=== PATIENT | female | born 1985 | race Caucasian/White ===

== ENCOUNTER 2019-08-15 19:07 | Emergency (ER) | payer OTHER, SELFPAY ==
--- NOTE | 2019-08-15 19:15 | ED.SKABFB ---
HPI - Skin/Abscess/Foreign Bdy General Chief complaint: Skin/Abscess/Foreign Body Stated complaint: rash Time Seen by Provider: 08/15/19 19:15 Source: patient and RN notes reviewed History of Present Illness HPI narrative: Patient is a 33-year-old female who presents the urgent care with complaints of a rash. Patient states that started 3 days while being outside and then worsened today while out in the heat all day fishing. Patient denies any use of [id number] medication or creams for the area. Denies any new detergents, creams, fragrance. No other acute complaints. No acute distress noted. Patient aware of the plan of care. Related Data Allergies Allergy/AdvReac Type Severity Reaction Status Date / Time Penicillins AdvReac Unknown CAUSES Verified 03/25/19 21:50 YEAST INFECTIONS Review of Systems Review of Systems: Narrative: CONSTITUTIONAL: Denies fever, chills, or sweats. EYES: Denies visual changes, redness, or discharge. ENT: Denies rhinorrhea, congestion, sore throat, or otalgia. CARDIOVASCULAR: Denies chest pain, palpitations, or edema. RESPIRATORY: Denies cough or dyspnea. GASTROINTESTINAL: Denies abdominal pain, nausea, vomiting, or diarrhea. GENITOURINARY: Denies dysuria or hematuria. SKIN: Reports of an itchy burning rash to bilateral upper arms and chest MUSCULOSKELETAL: Denies back pain, joint pain, or myalgia. NEUROLOGIC: Denies headache, numbness, or weakness. All other systems reviewed are negative, except as documented in HPI. PMFSH Social History Social History (Updated 03/25/19 @ 22:53 by Slim Morris PA-C) Smoking status: Current every day smoker Comments At the time of my signature, I reviewed and agree with the nursing past medical, surgical, social, and family history. There is no relevant family history pertinent to the patient complaint. Exam Narrative: Exam Narrative: GENERAL: This is a well-nourished, well-developed patient, in no apparent distress. HEAD: normocephalic, atraumatic. EYES: PERRL. Sclera clear/white. Vision is grossly intact. EARS: External ears normal NOSE: External nose normal with no obvious nasal discharge, nares without redness, no rhinorrhea. THROAT: Mucous membranes moist NECK: Neck supple SKIN: First-degree sunburn with 2 notable pinpoint blisters to the right chest and mild welting rash to bilateral upper arms, shoulders, chest NEURO: awake, alert, and oriented to person, place and time. There were no obvious focal neurologic abnormalities. EXTREMITIES: No clubbing, cyanosis, or edema. Course Vital Signs Vital signs: Vital Signs Temperature 98.4 F 08/15/19 19:19 Pulse Rate 102 H 08/15/19 19:19 Respiratory Rate 16 08/15/19 19:19 Blood Pressure 117/83 08/15/19 19:19 Pulse Oximetry 99 08/15/19 19:19 Temperature 98.4 F 08/15/19 19:19 Pulse Rate 102 H 08/15/19 19:19 Respiratory Rate 16 08/15/19 19:19 Blood Pressure 117/83 08/15/19 19:19 Pulse Oximetry 99 08/15/19 19:19 Reviewed MDM - Skin/Abscess/Foreign Bdy MDM Narrative Medical decision making narrative: Advised the patient to use a thin application of Silvadene for approximately 5 days as needed. A little bit goes a long way. Apply to affected areas of shoulder, upper arm, chest. Avoid being out in the sun until the areas are healed. If you are out in the sun?wear a sun guard or longsleeve shirt/T-shirt. May use aloe or cocoa butter as needed for soothing. May use a cool cloth as needed for soothing. If the areas start to blister, do not pop them. If you develop any lethargy, weakness, fever?go to the emergency room. Increase water intake. Follow-up with your PCP within 2 to 5 days or for worsening symptoms or failure to improve. Differential Diagnosis Differential diagnosis: Likely abscess of skin or subcutaneous tissue, urticaria, cellulitis, insect bites and impetigo Critical Care Time Critical Care Time Critical Care Time: No Discharge Plan Disc
[2019-08-15 19:19] VITALS: BP 117/83; PULSE 102; RESP 16; TEMP 36.9; O2SAT 99
== END 2019-08-15 19:42 | disposition home or self-care (01) ==
PROVIDERS: Emergency Provider Nurse Practitioner Family
DX: L55.9 Sunburn, unspecified (principal); F17.290 Nicotine dependence, other tobacco product, uncomplicated
CPT/HCPCS: 99213; G0463

== ENCOUNTER 2020-01-25 20:58 | Emergency (ER) | payer OTHER, SELFPAY ==
[2020-01-25] VITALS (19 sets, daily range): BP systolic 103–115; BP diastolic 66–76; PULSE 67–88; RESP 12–22; TEMP 36.7; O2SAT 96–100
--- NOTE | ~2020-01-25 | XR_ITS ---
EXAMINATION: XR chest 1V portable DATE: 01/25/2020 21:31 INDICATION: Cough, chills and congestion TECHNIQUE: frontal view of the chest was obtained. COMPARISON: Chest radiograph dated 12/06/2018 FINDINGS: There is some bronchial wall thickening which is most evident at the right infrahilar region consiste nt with given history of bronchitis. No airspace opacities, pleural effusion or pneumothorax. The car diomediastinal silhouette is normal. Mild thoracic dextrocurvature. IMPRESSION: 1. Mild bronchial wall thickening without evident airspace opacities consistent with given history of bronchitis. Reviewed, dictated and finalized at location H. [employer]
--- NOTE | 2020-01-25 21:04 | ED.GENADULT ---
HPI - General Adult General Chief complaint: Upper Respiratory Infection Stated complaint: not feeling well Time Seen by Provider: 01/25/20 21:03 Source: patient Mode of arrival: ambulatory Limitations: no limitations History of Present Illness HPI narrative: Patient is a 34-year-old female who presents for evaluation of cough, malaise, generally feeling unwell. Patient reports intermittent diarrhea but denies vomiting. She denies abdominal pain or chest pain. No current shortness of breath. She denies fever, states she has had intermittent chills. She denies recent sick contacts. She reports rhinorrhea and sore throat. She reports feeling like she has some swollen lymph nodes on the left side of her throat and she reports left-sided ear pain. She denies any discharge from the ears. She denies any difficulty with walking or severe headache pain. Denies vision changes. Related Data Allergies Allergy/AdvReac Type Severity Reaction Status Date / Time Penicillins AdvReac Unknown CAUSES Verified 01/25/20 21:20 YEAST INFECTIONS Review of Systems Review of Systems: Narrative: CONSTITUTIONAL: Denies fever, reports chills and EYES: Denies visual changes, redness, or discharge. ENT: Reports rhinorrhea, congestion, sore throat, otalgia CARDIOVASCULAR: Denies chest pain, palpitations, or edema. RESPIRATORY: Reports dry cough without shortness of breath GASTROINTESTINAL: Denies abdominal pain, denies nausea, reports intermittent diarrhea GENITOURINARY: Denies dysuria or hematuria. SKIN: Denies rash or itching. MUSCULOSKELETAL: Denies back pain, joint pain, or myalgia. NEUROLOGIC: Denies headache, numbness, or weakness. [facility] Past Medical History Medical History No pertinent past medical history Surgical History Surgical History (Updated 01/25/20 @ 21:22 by Jill Martino MD) H/O tubal ligation Social History Social History Smoking status: Current every day smoker Exam Narrative: Exam Narrative: GENERAL: Awake, alert, conversant HEAD: Normocephalic, atraumatic. EYES: PERRLA and EOMI. ENT: Nares clear, no rhinorrhea or epistaxis. Mucous membranes moist. TMs are clear bilaterally without erythema, exudate. No perforation. Uvula midline. No erythema. No petechiae of the tonsils. NECK: Supple. Left anterior cervical lymphadenopathy, rubbery, mobile, mildly tender. No erythematous. CHEST: No respiratory distress, breathing even and non labored, clear to auscultation bilaterally HEART: Regular rate, sinus rhythm ABDOMEN:Non distended, non tender EXTREMITIES: Normal range of motion. No edema. SKIN: Warm, dry, no rash. NEURO:No focal deficits. Alert and oriented x3 Course Vital Signs Vital signs: Vital Signs Temperature 36.7 C 01/25/20 21:05 Pulse Rate 70 01/25/20 21:05 Respiratory Rate 13 01/25/20 21:05 Blood Pressure 115/76 01/25/20 21:05 Pulse Oximetry 100 01/25/20 21:05 Temperature 36.7 C 01/25/20 21:13 Pulse Rate 71 01/25/20 22:08 Respiratory Rate 12 01/25/20 22:08 Blood Pressure 104/68 01/25/20 22:08 Pulse Oximetry 99 01/25/20 22:08 Medical Decision Making MDM Narrative Medical decision making narrative: Patient presented for evaluation of cough, malaise, earache, sore throat. At time of assessment, ABCs are intact and vital signs are stable. Patient is afebrile. No increased work of breathing. Patient is denying any chest pain or shortness of breath. Lungs are clear on exam. Oropharynx is unremarkable, there is no evidence of otitis media or serous effusions on the patient's examination of her ears. Patient with some mild left-sided anterior cervical lymph adenopathy which is likely reactive. Laboratory results are reassuring. Mild leukopenia. No lymphopenia. No electrolyte derangement or acute kidney injury. Patient's chest x-ray consistent
[2020-01-25 22:10] LABS: Eosinophils Absolute Auto 0.2 K/mm3 (0-0.3); Hematocrit 38.2 % (37.0-47.0); Hemoglobin 12.6 g/dL (12.0-15.0); Lymphocytes Absolute Auto 1.79 K/mm3 (0.9-3.2); Lymphocytes Percent Auto 44.4 % (18.3-44.2); Mean Corpuscular Hemoglobin 29.9 pg (26-34); Mean Corpuscular Volume 90.5 fl (80-100); Mean Platelet Volume 10.4 fl (7.4-10.4); Monocytes Absolute Auto 0.5 K/mm3 (0.1-0.6); Monocytes Percent Auto 11.2 % (2.6-8.5); Neutrophils Absolute Auto 1.6 K/mm3 (1.3-6.7); Neutrophils Percent Auto 39.4 % (45.5-73.1); Platelet Count Result 240 k/mm3 (150-375); Red Blood Count 4.22 M/mm3 (4.2-5.4); Red Cell Distribution Width 12.6 % (11.5-14.5)
[2020-01-25 22:24] LABS: Anion Gap 6 mmol/L (8-16); Blood Urea Nitrogen 14 mg/dL (7-17); Calcium 8.9 mg/dL (8.4-10.2); Carbon Dioxide 28 mmol/L (22-30); Chloride 104 mmol/L (98-107); Estimated CRCL calculation 79 ml/min; Estimated Glomerular Filt Rate > 60; Glucose 100 mg/dL (65-105); Potassium 3.6 mmol/L (3.4-5.0); Sodium 138 mmol/L (137-145)
[2020-01-26 19:47] LABS: SARS-CoV-2 RNA PCR Positive
== END 2020-01-25 22:48 | disposition home or self-care (01) ==
PROVIDERS: Emergency Provider Emergency Medicine
DX: U07.1 COVID-19 (principal); J40 Bronchitis, not specified as acute or chronic; F17.200 Nicotine dependence, unspecified, uncomplicated
CPT/HCPCS: 36415; 71045; 80048; 85025; 87081; 87635; 87804; 87880; 99283; C9803; U0003

== ENCOUNTER 2020-08-02 00:03 | Emergency (ER) | payer OTHER, SELFPAY ==
--- NOTE | ~2020-08-02 | CT_ITS ---
EXAMINATION: CTA chest PE protocol DATE: 08/02/2020 01:41 INDICATION: Right-sided chest pain and bilateral lower limb swelling TECHNIQUE: Computed tomography angiography (CTA) of the chest was performed with 100 mL Omnipaque-350 intravenous contrast timed to evaluate the pulmonary arteries. Coronal maximum intensity projection 3D-reconstructions were created by the technologist. The dose-length product (DLP) was 611.77 mGy-cm. Automated exposure control and iterative reconstruction technique were employed. COMPARISON: None. FINDINGS: The pulmonary arteries are well-opacified. No pulmonary embolism is identified. The lungs a re free of focal airspace opacities. There is mild dependent atelectasis. There is no pleural effusio n or pneumothorax. No pathologically enlarged thoracic lymph nodes are identified. The heart size is normal. IMPRESSION: 1. No pulmonary embolism or acute cardiopulmonary abnormality. Reviewed, dictated and finalized at location A.
--- NOTE | ~2020-08-02 | XR_ITS ---
EXAMINATION: XR chest 2V DATE: 08/02/2020 00:47 INDICATION: Right-sided chest pain TECHNIQUE: PA and lateral views of the chest are obtained. COMPARISON: 01/25/2020 FINDINGS: The lungs are free of acute opacities. There is no pleural effusion or pneumothorax. The ca rdiomediastinal silhouette is normal. The visualized bones and soft tissues are unremarkable. IMPRESSION: 1. No acute cardiopulmonary abnormality. Reviewed, dictated and finalized at location A.
[2020-08-02 00:10] VITALS: BP 125/80; PULSE 77; RESP 18; TEMP 36.6; O2SAT 99
--- NOTE | 2020-08-02 00:36 | ECG_ITS ---
Measurements Intervals [place] Rate: 77 P: 22 MS: 151 QRS: 13 QRSD: 95 T: 12 QT: 355 QTc: 402 Interpretive Statements SINUS RHYTHM NORMAL ECG Electronically Signed On 08-02-2020 6:06:36 CDT by Onel Llanos D.O.
[2020-08-02 00:49] LABS: Basophils Absolute Auto 0.1 K/mm3 (0.0-0.1); Basophils Percent Auto 0.8 % (0.2-1.2); Eosinophils Absolute Auto 0.1 K/mm3 (0-0.3); Eosinophils Percent Auto 2.1 % (0-4.4); Hematocrit 41.8 % (37.0-47.0); Hemoglobin 13.5 g/dL (12.0-15.0); Immature Granulocyte Absolute 0.01 K/mm3 (0.00-0.031); Immature Granulocyte Percent A 0.2 % (0-0.5); Lymphocytes Absolute Auto 2.71 K/mm3 (0.9-3.2); Lymphocytes Percent Auto 41.2 % (18.3-44.2); Mean Corpuscular HGB Conc 32.3 g/dl (32-36); Mean Corpuscular Hemoglobin 29.5 pg (26-34); Mean Corpuscular Volume 91.3 fl (80-100); Mean Platelet Volume 10.9 fl (7.4-10.4); Monocytes Absolute Auto 0.4 K/mm3 (0.1-0.6); Monocytes Percent Auto 6.5 % (2.6-8.5); Neutrophils Absolute Auto 3.2 K/mm3 (1.3-6.7); Neutrophils Percent Auto 49.2 % (45.5-73.1); Platelet Count Result 253 k/mm3 (150-375); Red Blood Count 4.58 M/mm3 (4.2-5.4); White Blood Count 6.6 K/mm3 (4.5-10.0)
[2020-08-02 01:01] LABS: Anion Gap 6 mmol/L (8-16); Blood Urea Nitrogen 13 mg/dL (7-17); Calcium 9.3 mg/dL (8.4-10.2); Carbon Dioxide 28 mmol/L (22-30); Chloride 105 mmol/L (98-107); Estimated CRCL calculation 93 ml/min; Estimated Glomerular Filt Rate > 60; Glucose 110 mg/dL (65-105); Potassium 3.5 mmol/L (3.4-5.0); Sodium 139 mmol/L (137-145)
[2020-08-02 01:08] LABS: INR 0.9; Prothrombin Time 13.1 Seconds (11.1-14.7)
[2020-08-02 01:09] LABS: Partial Thromboplastin Time 27.5 SECONDS (22.3-36.8)
[2020-08-02] MEDS: ASPIRIN 81 MG CHEWABLE TABLET 324 MG PO (01:09)
[2020-08-02 01:12] VITALS: BP 113/77; PULSE 78; RESP 18; O2SAT 100
[2020-08-02 01:13] LABS: Troponin I < 0.012 ng/mL (0.000-0.034)
--- NOTE | 2020-08-02 01:14 | ED.CHESTPAIN ---
HPI - Chest Pain General Chief Complaint: Chest Pain <Ty Martinez MD - Last Filed: 08/02/20 01:55> Stated Complaint: Chest Pain <Ty Martinez MD - Last Filed: 08/02/20 01:55> Time Seen by Provider: 08/02/20 00:38 <Ty Martinez MD - Last Filed: 08/02/20 01:55> Source: patient and family <Ty Martinez MD - Last Filed: 08/02/20 01:55> Mode of arrival: ambulatory <Ty Martinez MD - Last Filed: 08/02/20 01:55> Limitations: no limitations <Ty Martinez MD - Last Filed: 08/02/20 01:55> History of Present Illness HPI narrative: Patient is a 34 years old white female presents with sharp stabbing pain right chest started 3 days, constant, no radiation,, better at rest, worse with movement and activity. Patient also telling me having leg edema at the end of the day, better when she wake up in the morning. Patient reports having a lot of stress and crying spells lately. Denies any suicidal or homicidal ideation. Patient denies any fever, chills, nausea, vomiting, shortness of breath. <Ty Martinez MD - Last Filed: 08/02/20 01:55> Related Data Allergies/Adverse Reactions: Allergies Allergy/AdvReac Type Severity Reaction Status Date / Time Penicillins AdvReac Unknown CAUSES Verified 01/25/20 21:20 YEAST INFECTIONS <Ty Martinez MD - Last Filed: 08/02/20 01:55> Review of Systems Review of Systems: Narrative: General appearance: Well-developed, well-nourished Skin: Normal color Head: Normocephalic, nontraumatic Eyes: Clear conjunctiva ENT: Oropharynx normal, ears normal, nose normal Neck: Supple, nontender Chest and respiratory: Airway patent, no respiratory distress, no accessory muscle use Heart: Regular rate/rhythm Abdomen: Soft, nontender, no organomegaly, quiet bowel sounds Vascular: Normal peripheral pulses, normal capillary refill. Musculoskeletal: Normal range of motion, nontender back Neurologic: Alert and oriented ?3, SYSTEMS SUPPORT ENGINEER is normal as tested, no gross motor deficit <Ty Martinez MD - Last Filed: 08/02/20 01:55> [facility] Past Medical History Medical History: Medical History No pertinent past medical history <yT Martinez MD - Last Filed: 08/02/20 01:55> Surgical History Surgical History: Surgical History H/O tubal ligation <Ty Martinez MD - Last Filed: 08/02/20 01:55> Social History Social History: Social History Smoking status: Current every day smoker <Ty Martinez MD - Last Filed: 08/02/20 01:55> Exam Narrative: Exam Narrative: General appearance: Well-developed, well-nourished Skin: Normal color, trace edema lower extremity bilaterally at the ankle area Head: Normocephalic, nontraumatic Eyes: Clear conjunctiva ENT: Oropharynx normal, ears normal, nose normal Neck: Supple, nontender Chest and respiratory: Diffuse tenderness right chest, no bruises, no swelling, no mass, airway patent, no respiratory distress, no accessory muscle use Heart: Regular rate/rhythm Abdomen: Soft, nontender, no organomegaly, quiet bowel sounds Vascular: Normal peripheral pulses, normal capillary refill. Musculoskeletal: Normal range of motion, nontender back Neurologic: Alert and oriented ?3, SYSTEMS SUPPORT ENGINEER is normal as tested, no gross motor deficit
[2020-08-02 01:57] VITALS: BP 118/75; PULSE 67; RESP 18; O2SAT 100
[2020-08-02 02:51] VITALS: BP 98/57; PULSE 71; RESP 19; O2SAT 9
[2020-08-02 03:20] LABS: NT Pro B Type Natriuretic Pept 87 pg/mL (5-100)
[2020-08-02 03:39] VITALS: BP 110/79; PULSE 77; RESP 18
== END 2020-08-02 03:46 | disposition home or self-care (01) ==
PROVIDERS: Emergency Provider Emergency Medicine
DX: K20.90 Esophagitis, unspecified without bleeding (principal); F17.200 Nicotine dependence, unspecified, uncomplicated
CPT/HCPCS: 36415; 71046; 71275; 80048; 83880; 84484; 85025; 85380; 85610; 85730; 93005; 99284; A9270; Q9967

== ENCOUNTER 2021-07-22 19:35 | Emergency (ER) | payer OTHER, SELFPAY ==
--- NOTE | ~2021-07-22 | CT_ITS ---
EXAMINATION: CT abdomen pelvis w con DATE: 07/23/2021 00:10 INDICATION: Generalized abdominal pain, nausea, vomiting and diarrhea for 3 days TECHNIQUE: Computed tomography (CT) of the abdomen and pelvis was performed with 100 CC Omnipaque 300 intravenous contrast. Automated exposure control and iterative reconstruction technique were employe d. Exam dose: 1024.85 mGy-cm total exam DLP. COMPARISON: None. FINDINGS: The lung bases are clear. Normal heart size. No pericardial or pleural effusion. The liver, gallbladder, bile ducts, spleen, pancreas, pancreatic duct, and adrenal glands and kidneys are unremarkable. Normal caliber of the abdominal aorta. No intraperitoneal or retroperitoneal or pelvic mass lesion or adenopathy or ascites. The uterus, adnexal areas and urinary bladder are unremarkable. There are fluid distended small bowel segments and fluid levels in the colon, without abnormal dilata tion or obstruction. No bowel wall thickening or pneumatosis or intraperitoneal free air. Small fat-containing umbilical hernia. Included skeletal structures are unremarkable. IMPRESSION: Air-fluid levels of the small and large bowel suggesting enterocolitis Reviewed, dictated and finalized at Location A. Reviewed, dictated and finalized at location A. IMPRESSION: Air-fluid levels of the small and large bowel suggesting enterocol itis
[2021-07-22 19:47] VITALS: BP 116/82; PULSE 88; RESP 16; TEMP 36.4; O2SAT 98
[2021-07-22 21:40] LABS: Basophils Percent Auto 0.2 % (0.2-1.2); Eosinophils Percent Auto 0.1 % (0-4.4); Hematocrit 45.1 % (37.0-47.0); Hemoglobin 14.9 g/dL (12.0-15.0); Immature Granulocyte Absolute 0.03 K/mm3 (0.00-0.031); Immature Granulocyte Percent A 0.3 % (0-0.5); Lymphocytes Absolute Auto 0.74 K/mm3 (0.9-3.2); Lymphocytes Percent Auto 8.6 % (18.3-44.2); Mean Corpuscular Hemoglobin 29.8 pg (26-34); Mean Corpuscular Volume 90.2 fl (80-100); Monocytes Absolute Auto 0.4 K/mm3 (0.1-0.6); Monocytes Percent Auto 4.7 % (2.6-8.5); Neutrophils Absolute Auto 7.4 K/mm3 (1.3-6.7); Neutrophils Percent Auto 86.1 % (45.5-73.1); Platelet Count Result 239 k/mm3 (150-375); Red Cell Distribution Width 12.6 % (11.5-14.5); White Blood Count 8.6 K/mm3 (4.5-10.0)
[2021-07-22 21:41] LABS: Add Urine Microscopic? YES; Appearance Urine Clear (Clear); Bilirubin Urine 2+ (Negative); Blood Urine Negative (Negative); Color Urine Yellow (Yellow); Glucose Urine UA Negative (Negative); Ketones Urine 3+ mg/dL (Negative); Leukocyte Esterase Ur Negative LEU/UL (Negative); Nitrate Urine Negative (Negative); Protein Urine 1+ mg/dL (Negative); Specific Grav Ur 1.025 (1.001-1.035); Urobilinogen Urine 0.2 mg/dL (<2.0); pH Urine 5.5 (5.0-9.0)
[2021-07-22 21:51] LABS: Bacteria Urine Trace /hpf; Mucus Urine Moderate /lpf; Squamous Epithelial Cell Urine Many /hpf (Few)
[2021-07-22 21:52] LABS: Alanine Aminotransferase 15 U/L (6-35); Albumin Level 4.3 g/dL (3.5-5.1); Alkaline Phosphatase 82 U/L (38-126); Anion Gap 9 mmol/L (8-16); Aspartate Amino Transferase 33 U/L (14-36); Bilirubin,Total 0.3 mg/dL (0.2-1.3); Blood Urea Nitrogen 9 mg/dL (7-17); Calcium 8.5 mg/dL (8.4-10.2); Carbon Dioxide 21 mmol/L (22-30); Chloride 104 mmol/L (98-107); Estimated CRCL calculation 105 ml/min; Estimated Glomerular Filt Rate > 60; Glucose 111 mg/dL (65-110); Lipase 60 U/L (23-300); Potassium 3.7 mmol/L (3.4-5.0); Sodium 134 mmol/L (137-145)
[2021-07-22] MEDS: LACTATED RINGERS 2,000 ML 999 ML IV CONT (23:34)
[2021-07-22] MEDS: KETOROLAC 30 MG/ML VIAL (*BKC) IV PUSH (23:35)
[2021-07-22] MEDS: ONDANSETRON INJ 4 MG/2 ML VIAL IV PUSH (23:35)
[2021-07-23 00:32] VITALS: BP 111/70; PULSE 58; RESP 16; O2SAT 97
--- NOTE | 2021-07-23 00:37 | PC.NURSE ---
Pt refused covid test.
[2021-07-23 01:40] VITALS: BP 115/86; PULSE 65; RESP 18; O2SAT 98
--- NOTE | 2021-07-23 02:32 | ED.NAVMDI ---
HPI - Nausea/Vomiting/Diarrhea General Chief complaint: Nausea/Vomiting/Diarrhea Stated complaint: N/V/D, generalized weakness Time Seen by Provider: 07/22/21 22:33 Source: patient Mode of arrival: ambulatory History of Present Illness HPI Narrative: 35-year-old female presents today with complaints of nausea vomiting and diarrhea x3 days. Patient states she has not been able to keep much down today. Patient does have known sick contacts which will be her kids. Patient states her kids only had about 24 hours of sickness. Patient states she did have fever at home, chills, body aches, sweats, nasal congestion, runny nose. Patient not vaccinated against flu or COVID. Related Data Allergies Allergy/AdvReac Type Severity Reaction Status Date / Time Penicillins AdvReac Unknown CAUSES Verified 07/22/21 19:46 YEAST INFECTIONS Review of Systems Review of Systems: My review of system CONSTITUTIONAL: Denies fever, chills, or sweats. EYES: Denies visual changes, redness, or discharge. ENT: Denies rhinorrhea, congestion, sore throat, or otalgia. CARDIOVASCULAR: Denies chest pain, palpitations, or edema. RESPIRATORY: Denies cough or dyspnea. GASTROINTESTINAL: abdominal pain, nausea, vomiting, or diarrhea. GENITOURINARY: Denies dysuria or hematuria. SKIN: Denies rash or itching. MUSCULOSKELETAL: Denies back pain, joint pain, or myalgia. NEUROLOGIC: Denies headache, numbness, dizziness, or weakness. PSYCHIATRIC: Denies anxiety or depression. [facility] Past Medical History Medical History No pertinent past medical history Surgical History Surgical History H/O tubal ligation Social History Social History Smoking status: Current every day smoker Exam Narrative: GENERAL: Ill l-appearing, nontoxic appearing, and in no acute distress. HEAD: Normocephalic, atraumatic. EYES: PERRLA and EOMI. ENT: Nares clear, no rhinorrhea or epistaxis. Mucous membranes moist. Oropharynx without tonsillar hypertrophy exudate or other lesions. Bilateral TMs pearly haque nonbulging NECK: Supple. No adenopathy or masses. No carotid bruits or JVD CHEST: Clear to auscultation. No respiratory distress. No wheezes rales or rhonchi HEART: Regular rate and rhythm. No murmur heard. Normal peripheral pulses. ABDOMEN: Left upper and epigastric tenderness with palpation. Soft, nondistended, normal active bowel sounds. EXTREMITIES: Normal range of motion. No edema. SKIN: Warm, dry, no rash. NEURO: No focal deficits. Alert and oriented x3. PSYCH: Normal mood and affect. Course Course Emergency Course: Patient given 2 L of IV fluids with Zofran. Noted much improvement after medications. White count 8.6, hemoglobin 14.9, sodium 134, potassium 3.7, carbon dioxide 21, urine positive for ketones, protein, bilirubin, RBCs, WBCs, squamous cells, and urine mucus. No signs of infection at this time. CT and labs reviewed with patient. Patient wants to go home. Patient discharged home with Zofran and instructions to return if needed. Vital Signs Vital signs: Vital Signs Temperature 36.4 C L 07/22/21 19:47 Pulse Rate 88 07/22/21 19:47 Respiratory Rate 16 07/22/21 19:47 Blood Pressure 116/82 07/22/21 19:47 Pulse Oximetry 98 07/22/21 19:47 Temperature 36.4 C L 07/22/21 19:47 Pulse Rate 65 07/23/21 01:40 Respiratory Rate 18 07/23/21 01:40 Blood Pressure 115/86 07/23/21 01:40 Pulse Oximetry 98 07/23/21 01:40 MDM - Nausea/Vomiting/Diarrhea MDM Narrative Medical decision making narrative: HPI as noted, WBCs 8.6, CT did show mildly distended appendix with out surrounding inflammatory changes, distended colon, ileus versus nonspecific enteritis. Less suspicious for appendicitis due to no right lower quadrant tenderness, no right lower quadrant pain, suspicious
== END 2021-07-23 01:42 | disposition home or self-care (01) ==
PROVIDERS: Emergency Medicine; Emergency Provider Nurse Practitioner Family
DX: K52.9 Noninfective gastroenteritis and colitis, unspecified (principal); Z28.310 Unvaccinated for COVID-19; F17.200 Nicotine dependence, unspecified, uncomplicated
CPT/HCPCS: 36415; 74177; 80053; 81001; 81025; 83690; 85025; 87086; 87088; 96361; 96374; 96375; 99284; J1885; J2405; J7120; Q9967

== ENCOUNTER 2021-07-31 00:26 | Emergency (ER) | payer OTHER, SELFPAY ==
--- NOTE | ~2021-07-31 | CT_ITS ---
EXAMINATION: CT abdomen pelvis w con DATE: 07/31/2021 01:59 INDICATION: Epigastric and right upper quadrant abdominal pain. Leukocytosis. Abnormal liver function tests. TECHNIQUE: Computed tomography (CT) of the abdomen and pelvis was performed with 75 mL Omnipaque 300 intravenous contrast. Automated exposure control and iterative reconstruction technique were employed . The dose-length product was 845.81 mGy-cm. COMPARISON: CT abdomen and pelvis 07/22/2021 FINDINGS: The visualized portions of the lung bases demonstrates mild atelectasis on the right. No pl eural effusion. The heart size is normal. No pericardial effusion. The liver, gallbladder, spleen, pa ncreas, adrenal glands, and kidneys are normal. There is liquid stool in the colon correlating with t he patient's symptom of diarrhea. There are no dilated loops of bowel. There is a transient jejunal i ntussusception. The appendix is normal. There is mild mesenteric lymphadenopathy. There is no free in traperitoneal fluid. There is mild thoracolumbar spondylosis. IMPRESSION: 1. Mild mesenteric lymphadenopathy, likely reactive. Reviewed, dictated and finalized at location A.
[2021-07-31 00:29] VITALS: BP 115/75; PULSE 77; RESP 18; TEMP 36.4; O2SAT 100
[2021-07-31 00:49] LABS: Basophils Absolute Auto 0.1 K/mm3 (0.0-0.1); Basophils Percent Auto 0.5 % (0.2-1.2); Eosinophils Absolute Auto 0.4 K/mm3 (0-0.3); Eosinophils Percent Auto 3.2 % (0-4.4); Hematocrit 43.7 % (37.0-47.0); Hemoglobin 14.7 g/dL (12.0-15.0); Immature Granulocyte Absolute 0.04 K/mm3 (0.00-0.031); Immature Granulocyte Percent A 0.4 % (0-0.5); Lymphocytes Absolute Auto 3.04 K/mm3 (0.9-3.2); Lymphocytes Percent Auto 26.7 % (18.3-44.2); Mean Corpuscular HGB Conc 33.6 g/dl (32-36); Mean Corpuscular Hemoglobin 29.7 pg (26-34); Mean Corpuscular Volume 88.3 fl (80-100); Mean Platelet Volume 10.6 fl (7.4-10.4); Monocytes Absolute Auto 0.8 K/mm3 (0.1-0.6); Monocytes Percent Auto 6.8 % (2.6-8.5); Neutrophils Absolute Auto 7.1 K/mm3 (1.3-6.7); Neutrophils Percent Auto 62.4 % (45.5-73.1); Platelet Count Result 338 k/mm3 (150-375); Red Blood Count 4.95 M/mm3 (4.2-5.4); Red Cell Distribution Width 12.4 % (11.5-14.5); White Blood Count 11.4 K/mm3 (4.5-10.0)
[2021-07-31 01:00] LABS: Alanine Aminotransferase 98 U/L (6-35); Albumin Level 4.2 g/dL (3.5-5.1); Alkaline Phosphatase 138 U/L (38-126); Anion Gap 11 mmol/L (8-16); Aspartate Amino Transferase 68 U/L (14-36); Bilirubin,Total 0.3 mg/dL (0.2-1.3); Blood Urea Nitrogen 8 mg/dL (7-17); Calcium 8.8 mg/dL (8.4-10.2); Carbon Dioxide 25 mmol/L (22-30); Chloride 100 mmol/L (98-107); Estimated CRCL calculation 86 ml/min; Estimated Glomerular Filt Rate > 60; Glucose 105 mg/dL (65-110); Lipase 144 U/L (23-300); Potassium 3.4 mmol/L (3.4-5.0); Sodium 136 mmol/L (137-145)
[2021-07-31 01:02] LABS: Appearance Urine Clear (Clear); Bilirubin Urine 1+ (Negative); Blood Urine Negative (Negative); Color Urine Yellow (Yellow); Glucose Urine UA Negative (Negative); Ketones Urine Trace mg/dL (Negative); Leukocyte Esterase Ur Negative LEU/UL (Negative); Nitrate Urine Negative (Negative); Protein Urine Trace mg/dL (Negative); Specific Grav Ur 1.025 (1.001-1.035); Urobilinogen Urine 0.2 mg/dL (<2.0)
[2021-07-31 01:15] LABS: Bacteria Urine Trace /hpf; Mucus Urine Few /lpf; RBC Urine 0-2 /hpf (0-2); Squamous Epithelial Cell Urine Many /hpf (Few)
--- NOTE | 2021-07-31 01:21 | ED.ABDPAIN ---
HPI - Abdominal Pain General Chief Complaint: Abdominal Pain <ABY Cameron Last Filed: 07/31/21 03:50> Stated Complaint: abdominal pain/back pain, n/v/d <ABY Cameron Last Filed: 07/31/21 03:50> Time Seen by Provider: 07/31/21 00:49 <ABY Cameron Last Filed: 07/31/21 03:50> Source: patient <ABY Cameron Last Filed: 07/31/21 03:50> Mode of arrival: ambulatory <ABY Cameron Last Filed: 07/31/21 03:50> Limitations: no limitations <ABY Cameron Last Filed: 07/31/21 03:50> History of Present Illness HPI narrative: Patient is a 35-year-old female who presents the ED with report of abdominal pain and diarrhea. Patient reports having nausea, vomiting, diarrhea for the past 10 days. She was seen in the ED on 07/23 at which point she was given fluids and Zofran and felt better. She had a CT scan of her abdomen pelvis at that time which showed enterocolitis. Patient reports diarrhea has since persisted. No rectal bleeding. She reports less nausea and vomiting than previously, but now complains of epigastric and right upper quadrant abdominal pain over the last 3 days. Patient has been taking Pepto-Bismol and Tums at home without relief. She has not taken any pain medication for her pain. No fever, chills, cough, cold symptoms, dysuria, urinary frequency, hematuria, back pain. <Sangita Trejo PA-C - Last Filed: 07/31/21 03:50> Related Data Allergies/Adverse Reactions: Allergies Allergy/AdvReac Type Severity Reaction Status Date / Time Penicillins AdvReac Unknown CAUSES Verified 07/31/21 00:31 YEAST INFECTIONS <ABY Cameron Last Filed: 07/31/21 03:50> Review of Systems Review of Systems: CONSTITUTIONAL: Denies fever, chills. ENT: Denies rhinorrhea, congestion. CARDIOVASCULAR: Denies chest pain. RESPIRATORY: Denies cough or dyspnea. GASTROINTESTINAL: Reports epigastric/RUQ pain, N/V/D. Denies rectal bleeding. GENITOURINARY: Denies dysuria, urinary frequency, or hematuria. MUSCULOSKELETAL: Denies back pain. <Sangita Trejo PA-C - Last Filed: 07/31/21 03:50> All systems reviewed & are unremarkable except as noted in HPI and below <Sangita Trejo PA-C - Last Filed: 07/31/21 03:50> PMFSH Past Medical History Medical History: Medical History No pertinent past medical history <Sangita Trejo PA-C - Last Filed: 07/31/21 03:50> Surgical History Surgical History: Surgical History H/O tubal ligation <Sangita Trejo PA-C - Last Filed: 07/31/21 03:50> Social History Social History: Social History Smoking status: Current every day smoker <Sangita Trejo PA-C - Last Filed: 07/31/21 03:50> Exam Narrative: GENERAL: Well appearing, well-nourished, non-toxic, in no acute distress. HEAD: Normocephalic, atraumatic. NECK: Supple. No adenopathy, no masses. RESPIRATORY: Airway patent, respirations nonlabored. Clear to auscultation bilaterally, no rales, rhonchi, wheezing. CARDIOVASCULAR: Regular rate and rhythm without murmurs, rubs, or gallops. Radial pulses 2+ and equal bilaterally. ABDOMINAL: Soft, tenderness to palpation in epigastric region and RUQ, no tenderness in bilateral lower quadrants, nondistended, no hepatosplenomegaly. Normoactive BS. MUSCULOSKELETAL: Moves all extremities. Strength/ROM intact without gross deformities or TTP. SKIN: Warm, dry, normal color. No rashes. NEURO: A&O X3. Speech clear. Cranial nerves II-XII grossly intact. Steady gait. No ataxic movements. PSYCHIATRIC: Appropriate mood and affect. Normal interaction. <Sangita Trejo PA-C - Last Filed: 07/31/21 03:50> Course DESKTOP SUPPORT CONSULTANT/PA Physician Supervision I did not see this patient but the care plan was discussed with me, labs and imaging reviewed. I agr
[2021-07-31 01:24] LABS: Add Urine Microscopic? YES
[2021-07-31] MEDS: SODIUM CHLORIDE 0.9% IV 1,000 ML 999 ML IV CONT (01:41)
[2021-07-31] MEDS: ONDANSETRON INJ 4 MG/2 ML VIAL IV PUSH (01:41)
[2021-07-31] MEDS: KETOROLAC 30 MG/ML VIAL (*BKC) IV PUSH (02:42)
[2021-07-31] MEDS: DICYCLOMINE HCL 10 MG CAPSULE 20 MG PO (03:44)
[2021-07-31 03:49] VITALS: BP 104/83; PULSE 72; RESP 18; O2SAT 100
[2021-07-31] MEDS: metroNIDAZOLE 250 MG TABLET 500 MG PO (03:51)
[2021-07-31] MEDS: CIPROFLOXACIN 500 MG TAB PO (03:51)
== END 2021-07-31 03:50 | disposition home or self-care (01) ==
PROVIDERS: Emergency Provider Emergency Medicine; PCP Emergency Medicine
DX: K52.9 Noninfective gastroenteritis and colitis, unspecified (principal); R74.01 Elevation of levels of liver transaminase levels; F17.200 Nicotine dependence, unspecified, uncomplicated
CPT/HCPCS: 36415; 74177; 80053; 81001; 81025; 83690; 85025; 87086; 87088; 87147; 96365; 96375; 99284; A9270; J0131; J1885; J2405; J7030; Q9967

== ENCOUNTER 2022-11-01 18:43 | Emergency (ER) | payer OTHER, SELFPAY ==
--- NOTE | 2022-11-01 18:44 | ED.EAR ---
HPI - Ear Problem General Chief complaint: Ear Stated complaint: Ears Irritation Time Seen by Provider: 11/01/22 18:44 Source: patient Mode of arrival: ambulatory Limitations: no limitations History of Present Illness HPI Narrative: Patient is a 37-year-old female who presents with right ear pain and right throat pain. Patient states her allergies have been increasing since she has been taking [id number] allergy medicine with mild relief. Denies any fever, chills, nausea, vomiting, diarrhea, headache, shortness of breath. Does report intermittent congestion. Has not taken Tylenol or ibuprofen Complaint: ear pain Related Data Home Medications Medication Instructions Recorded Confirmed bupropion HCl 150 mg tablet,12 hr 150 mg PO DIRECTED 11/01/22 11/01/22 sustained-release Allergies Allergy/AdvReac Type Severity Reaction Status Date / Time Penicillins AdvReac Unknown CAUSES Verified 07/31/21 00:31 YEAST INFECTIONS Review of Systems Review of Systems: All systems reviewed & are unremarkable except as noted in HPI and below Constitutional: Constitutional: Denies body ache(s), Denies chills, Denies fever(s), Denies headache(s) and Denies malaise Eyes: Eyes: Denies blurry vision, Denies eye discharge and Denies irritation ENT: Reports otalgia, Denies headache(s), Denies nasal congestion, Denies nasal discharge and Reports sore throat Cardiovascular: Cardiovascular: Denies chest pain, Denies edema, Denies palpitations and Denies dyspnea on exertion Respiratory: Respiratory: Denies cough and Denies dyspnea on exertion Gastrointestinal: Gastrointestinal: Denies abdominal pain, Denies diarrhea, Denies nausea and Denies vomiting Musculoskeletal: Musculoskeletal: Denies back pain, Denies arthralgias and Denies muscle weakness Integumentary/Breasts: Skin/Breast: Denies pruritus and Denies rash Neurologic: Denies headache(s) Psychiatric: Psychiatric: Reports no additional psychiatric complaints Endocrine: Endocrine: Denies palpitations PMFSH Past Medical History Medical History No pertinent past medical history Surgical History Surgical History H/O tubal ligation Social History Social History Smoking status: Current every day smoker Comments At time of signature, agree with nursing past medical, surgical, social and family history. There is no relevant family history pertinent to the presenting complaint? Exam Const: General: cooperative, healthy appearing, no acute distress and well nourished Nutritional Appearance: well nourished Orientation/consciousness: patient oriented x3 Limitations: no limitations HENMT: Head: normal to inspection, normocephalic and atraumatic Ears: hearing grossly normal bilaterally, TM's normal bilaterally, EAC's normal and no periauricular adenopathy Face/Nose/Sinus: Normal external nose present, Normal nares present, Normal nasal mucous membranes and turbinates present, No nasal discharge present, normal facial exam and sinuses nontender Face and sinus: normal facial exam and sinuses nontender Mouth: Yes Normal oral and palatal mucosa present, Yes lip normal, Yes tongue normal and Yes moist mucous membranes Throat: posterior oropharynx normal, tonsils normal and uvula midline Eyes: General: appearance normal, both eyes and all related structures Alignment and Position: alignment normal and position normal Eyelids: eyelids normal Pupils: Equal, round and reactive pupils present EOM: EOMs intact bilaterally Neck: Neck: normal visual inspection, full ROM, no lymphadenopathy and supple Chest: Chest palpation & inspection: normal inspection of the chest Resp: Effort & Inspection: normal respiratory effort and able to speak in complete sentences Auscultation: clear to auscultation bi
[2022-11-01 18:50] VITALS: BP 116/79; PULSE 79; RESP 16; TEMP 36.8; O2SAT 100
== END 2022-11-01 19:24 | disposition home or self-care (01) ==
PROVIDERS: Emergency Provider Nurse Practitioner Family; PCP Emergency Medicine
DX: J06.9 Acute upper respiratory infection, unspecified (principal); F17.200 Nicotine dependence, unspecified, uncomplicated
CPT/HCPCS: 99211; G0463

== ENCOUNTER 2023-01-21 15:41 | Emergency (ER) | payer OTHER, SELFPAY ==
[2023-01-21 15:59] VITALS: BP 121/74; PULSE 72; RESP 16; TEMP 37.1; O2SAT 100
--- NOTE | 2023-01-21 17:05 | ED.URI ---
HPI - URI/Sore Throat General Chief Complaint: Upper Respiratory Infection Stated Complaint: cough Time Seen by Provider: 01/21/23 16:57 Source: patient and RN notes reviewed Mode of arrival: ambulatory Limitations: no limitations History of Present Illness HPI Narrative: Patient presents today complaining of a one-week history of cough, body aches, muffled hearing, congestion, rhinorrhea, sore throat with coughing, shortness of breath with exertion. Cough has been productive for the past 2-3 days. She has been using [id number]-wka-kramhyf medication without relief. Denies history of asthma. She smokes 1 pack per day. Related Data Home Medications Medication Instructions Recorded Confirmed dextroamphetamine-amphetamine 20 20 mg PO DAILY 01/21/23 01/21/23 mg tablet (Adderall) Allergies Allergy/AdvReac Type Severity Reaction Status Date / Time Penicillins AdvReac Unknown CAUSES Verified 01/21/23 15:57 YEAST INFECTIONS Review of Systems Review of Systems: CONSTITUTIONAL: Denies fever, chills, or sweats.+ body aches EYES: Denies visual changes, redness, or discharge. ENT: + bilateral ear muffling, congestion, rhinorrhea, sore throat CARDIOVASCULAR: Denies chest pain, palpitations, or edema. RESPIRATORY:+ cough, shortness of breath with exertion. GASTROINTESTINAL: Denies abdominal pain, nausea, vomiting, or diarrhea. GENITOURINARY: Denies dysuria or hematuria. SKIN: Denies rash, itching, or wounds. MUSCULOSKELETAL: Denies back pain, joint pain, or myalgia. NEUROLOGIC: Denies headache, numbness, tingling, or weakness. PSYCH: Denies depression or anxiety. [facility] Past Medical History Medical History No pertinent past medical history Surgical History Surgical History H/O tubal ligation Social History Social History Smoking status: Current every day smoker Comments At time of signature, I have reviewed and agree with nursing past medical, surgical, social and family history unless otherwise noted. Please see nursing chart for further information. There is no relevant family history pertinent to the presenting complaint Exam Narrative: GENERAL: Mildly ill appearing, well-nourished, and in no acute distress. HEAD: Normocephalic, atraumatic. EYES: EOMI. No redness or drainage. Conjunctivae normal. ENT: Mucous membranes pink and moist. Nares congested. No rhinorrhea. TMs normal bilaterally. Throat erythematous without edema or exudate. Uvula midline. NECK: Normal AROM. Supple. No lymphadenopathy. CHEST: No respiratory distress. Clear to auscultation. HEART: Regular rate and rhythm. No murmur appreciated. Normal peripheral pulses. EXTREMITIES: Normal range of motion. No edema. SKIN: Warm, dry, no rash. Capillary refill normal. Normal skin turgor. NEURO: No focal deficits. Alert and oriented x3. Gait steady. PSYCH: Normal affect. No signs of depression or anxiety. Course Course Level of Care: Express Care Visit Vital Signs Vital signs: Vital Signs Temperature 98.8 F 01/21/23 15:59 Pulse Rate 72 01/21/23 15:59 Respiratory Rate 16 01/21/23 15:59 Blood Pressure 121/74 01/21/23 15:59 Pulse Oximetry 100 01/21/23 15:59 Oxygen Delivery Room Air 01/21/23 15:59 Temperature 98.8 F 01/21/23 15:59 Pulse Rate 72 01/21/23 15:59 Respiratory Rate 16 01/21/23 15:59 Blood Pressure 121/74 01/21/23 15:59 Pulse Oximetry 100 01/21/23 15:59 Oxygen Delivery Room Air 01/21/23 15:59 Reviewed MDM - URI/Sore Throat MDM Narrative Medical decision making narrative: Patient declines testing for strep throat. Will treat with prednisone, albuterol inhaler, and Tessalon Perles. Patient agrees with plan. Anticipatory guidance given. Differential Diagnosis Differential diagnosis
== END 2023-01-21 17:23 | disposition home or self-care (01) ==
PROVIDERS: Emergency Provider Nurse Practitioner; PCP Emergency Medicine
DX: J40 Bronchitis, not specified as acute or chronic (principal); J06.9 Acute upper respiratory infection, unspecified; F17.200 Nicotine dependence, unspecified, uncomplicated
CPT/HCPCS: 99213; G0463

== ENCOUNTER 2024-03-24 19:00 | Emergency (ER) | payer OTHER, SELFPAY ==
--- NOTE | 2024-03-24 19:03 | ED_ITS ---
HPI - URI/Sore Throat General Chief Complaint: Upper Respiratory Infection Stated Complaint: congestion,ear/neck pain, rib pain Time Seen by Provider: 03/24/24 19:08 Source: patient, RN notes reviewed and old records reviewed Mode of arrival: ambulatory Limitations: no limitations History of Present Illness HPI Narrative: 38-year-old female presents to the [facility] with complaints of ear discomfort, sore throat congestion, rib pain from coughing. Symptoms started a week ago Saturday, 10 days ago. Patient is a smoker. Patient reports that she has tried cold medication. Denies fevers Onset (ago): day(s) (10) Treatments prior to arrival: none Related Data Allergies Allergy/AdvReac Type Severity Reaction Status Date / Time Penicillins AdvReac Unknown CAUSES Verified 03/24/24 19:10 YEAST INFECTIONS Review of Systems Review of Systems: All systems reviewed & are unremarkable except as noted in HPI and below Constitutional: Constitutional: Reports no additional constitutional complaints ENT: Reports as per HPI Cardiovascular: Cardiovascular: Reports no additional cardiovascular complaints, Denies chest pain and Denies dyspnea Respiratory: Respiratory: Reports as per HPI, Denies chest congestion, Reports cough and Denies dyspnea Musculoskeletal: Musculoskeletal: Reports no additional musculoskeletal complaints Integumentary/Breasts: Skin/Breast: Reports system reviewed and no additional complaints, except as docu PMFSH Past Medical History Medical History No pertinent past medical history Surgical History Surgical History H/O tubal ligation Social History Social History Smoking status: Current every day smoker Comments At the time of my signature, I reviewed and agree with the nursing past medical, surgical, social, and family history. There is no relevant family history pertinent to the patient complaint. Exam Const: General: cooperative, healthy appearing, comfortable, no acute distress, well developed, alert and well nourished Nutritional Appearance: well nourished Orientation/consciousness: patient oriented x3 Limitations: no limitations HENMT: Head: normal to inspection Ears: hearing grossly normal bilaterally, external ears normal, EAC's normal, mastoids normal, no periauricular adenopathy and TM abnormal with fluid behind the TM bilateral; not erythematous Face/Nose/Sinus: Normal external nose present, Normal nares present, Normal nasal mucous membranes and turbinates present and No nasal discharge present Mouth: Yes Normal oral and palatal mucosa present, Yes lip normal, Yes tongue normal and Yes moist mucous membranes Throat: posterior oropharynx normal, uvula midline, postnasal drainage and no uvular edema Eyes: General: appearance normal, both eyes and all related structures Alignment and Position: alignment normal Neck: Neck: normal visual inspection, full ROM, no lymphadenopathy and no meningeal signs Chest: Chest palpation & inspection: normal inspection of the chest Resp: Effort & Inspection: normal respiratory effort, able to speak in complete sentences and Actively coughing dry Auscultation: clear to auscultation bilaterally, no crackles, no rales, no rhonchi and no wheezes Cardio: Rate: regular rate Skin: General skin exam: normal color and no rashes or lesions noted Neuro: General: patient oriented x3, gait normal, moves all extremities and no meningeal signs Cognition (Neuro): normal cognition Speech: normal speech Gait exam (Neuro): Normal gait present Extrem: General: normal to inspection, full ROM, capillary refill normal and normal gait Psych: Appearance: grossly normal and well kempt Mental Status: mental status grossly normal Speech and movement: Normal speech and movement present and Clear speech present Affect: normal affect Attitude: cooperative Course Course Level of Care: Express Care Visit Vital Signs Vital signs: Vital Signs Temperature 98.8 F 03/24/24 19:09 Pulse Rate 78 03/24/24 19:09 Respiratory Rate 16 03/24/24 19:09 Blood Pressure 119/80 03/24/24 19:09 Pulse Oximetry 100 03/24/24 19:09 Oxygen Delivery Room Air 03/24/24 19:09 Temperature 98.8 F 03/24/24 19:09 Pulse Rate 78 03/24/24 19:09 Respiratory Rate 16 03/24/24 19:09 Blood Pressure 119/80 03/24/24 19:09 Pulse Oximetry 100 03/24/24 19:09 Oxygen Delivery Room Air 03/24/24 19:09 Reviewed MDM - URI/Sore Throat MDM Narrative Medical decision making narrative: Patient sitting comfortably in exam room. Nontoxic, vitals stable. Patient in no acute distress. Patient presents with 10 day history of sinus congestion, ear pressure and cough. Postnasal drainage, clear fluid noted behind bilateral TMs only acute findings noted on exam. Patient appropriate for outpatient treatment of sinusitis, bronchitis. Discharge instructions reviewed with patient, as well as provided in writing per nursing staff. The instructions also include specific and strict return/GO TO THE ER as well as f/u information. All questions have been answered, and the patient deny any further questions with discharge and discharge plan. Some parts of this dictation were generated by voice recognition software and may contain typographical and/or grammatical inaccuracies. Differential Diagnosis Differential diagnosis: Likely upper respiratory infection, otitis media, sinusitis, viral infection and bronchitis Critical Care Time Critical Care Time Critical Care Time: No Discharge Plan Discharge Clinical Impression: Bronchitis Sinusitis Qualifiers: Sinusitis location: pansinusitis Chronicity: acute Recurrence: not specified as recurrent Qualified Code(s): J01.40 - Acute pansinusitis, unspecified Patient Disposition: Home, Self-Care Condition: Stable Instructions: Antibiotic Form, How to Stop Smoking (ED), Sinusitis (ED), Acute Bronchitis (ED) Additional Instructions: It is very important to treat your symptoms. Drink plenty of water, Gatorade, Pedialyte, ice pops or Jell-O. -Alternate Tylenol and Motrin per package directions for fever or pain. You can alternate every 4 hours -Antihistamine medication such as Zyrtec/Claritin/Yessica during the day can help improve symptoms. -doing daily nasal irrigations can help relieve pressure your sinuses. Things like a Neti pot -Use Flonase twice a day for 5 days then daily to help reduce the inflammation and dry up your sinuses. -You can also use Mucinex. Be sure to drink plenty of water with this medication at least 8 ounces with every dose and it is important to drink 8 to 10 glasses of water per day. Water is a natural decongestant -Eat and drink things that are easy to swallow, like tea or soup, or popsicles. -Oral rinses such as: Salt water gargles and/or may use topical anesthetic (eg. Chloraseptic spray) or lozenges to relieve dryness or throat pain). -Frequent hand washing or hand math and science division chair is one of the best ways to prevent spread of infection. -Using a vaporizer or humidifier at night will also help thin secretions and help with coughing up phlegm. -Follow up with primary care provider in 7-10 days if condition is not improving - For new or worsening symptoms go directly to the nearest ER Patient Language: Austrian Prescriptions: New doxycycline monohydrate 100 mg tablet 100 mg PO BID Qty: 14 0RF prednisone 20 mg tablet See Rx Instructions .Route .COMPLEX Qty: 9 0RF Rx Instructions: Take 40 mg daily for 3 days, 20 mg daily for 3 days albuterol sulfate 90 mcg/actuation HFA aerosol inhaler 2 puff inhalation QID PRN (Reason: shortness of breath or wheezing) Qty: 6.7 0RF (DME) Aerochamber MV Spacer See Rx Instructions .Route Qty: 1 0RF Rx Instructions: As directed No Action (DME) BreatheRite MDI Spacer Spacer See Rx Instructions .ROUTE .MEDSUPPLY Qty: 1 0RF Rx Instructions: As directed Follow-up/Referrals: Shaheed Cook DO [Physician] - 2 Weeks (express care follow up ) PHYSICIAN,STUDIO COUCH FRAME [employer]DER [Primary Care Provider] - Homero Wong MD [Physician] - 2 Weeks ([facility] follow up ) Stand Alone Forms: Work/School Release IP Time of Disposition: 19:21
[2024-03-24 19:09] VITALS: BP 119/80; PULSE 78; RESP 16; TEMP 37.1; O2SAT 100
== END 2024-03-24 19:23 | disposition home or self-care (01) ==
PROVIDERS: Emergency Provider Nurse Practitioner
DX: J40 Bronchitis, not specified as acute or chronic (principal); J01.40 Acute pansinusitis, unspecified; F17.200 Nicotine dependence, unspecified, uncomplicated
CPT/HCPCS: 99213; G0463